=== PATIENT | female | born 1995 | race Two or more races ===

== ENCOUNTER 2024-03-02 08:53 | Day surgery (SDC) | payer OTHER ==
[2024-02-24 09:45] LABS: HEMATOCRIT 37.4 % (36.0-45.00); HEMOGLOBIN 12.9 g/dL (12.0-15.00); MEAN CELL VOLUME 87.6 fL (80.00-100.00); MEAN CORPUSCULAR HEMOGLOBIN 30.3 pg (27.00-32.0); MEAN CORPUSCULAR HGB CONC 34.6 g/dl (32.0-36.0); PLATELET COUNT 235 K/uL (150-450); RED BLOOD COUNT 4.27 M/uL (4.00-6.00); RED CELL DISTRIBUTION WIDTH 13.4 % (11.5-14.5)
[2024-02-24 10:12] LABS: PARTIAL THROMBOPLASTIN TIME 27.6 SECONDS (22.0-34.0); PROTHROMBIN TIME 10.9 SECONDS (9.0-11.5)
[2024-02-24 10:30] LABS: ALBUMIN 3.8 gm/dL (3.4-5.0); BILIRUBIN TOTAL 0.4 mg/dL (0.3-1.2); CALCIUM 8.9 mg/dL (8.5-10.1); CREATININE SERUM 0.72 mg/dL (0.55-1.02); GFR 95.11; GLOBULINA 3.3 G/DL (2.4-3.5); POTASSIUM 4.16 mEq/L (3.5-5.1); TOTAL PROTEIN 7.1 gm/dL (6.4-8.2)
[2024-03-02] MEDS ORDERED: POVIDONE-IODINE 118 ML BOTT TOP SCH (15:00)
== END 2024-03-02 21:05 | disposition home or self-care (01) ==
LOC: CIR.AMB 08:53
PROVIDERS: ATTEND Specialist
DX: N84.0 Polyp of corpus uteri (principal); Z88.1 Allergy status to other antibiotic agents

== ENCOUNTER 2024-05-04 14:49 | Emergency (ER) | payer OTHER ==
[~2024-05-04] VITALS: Ht 165.1 cm; Wt 75.3 kg
[2024-05-04 17:13] LABS: HEMATOCRIT 38.9 % (36.0-45.00); HEMOGLOBIN 13.2 g/dL (12.0-15.00); MEAN CELL VOLUME 88.5 fL (80.00-100.00); PLATELET COUNT 265 K/uL (150-450); RED CELL DISTRIBUTION WIDTH 12.8 % (11.5-14.5)
[2024-05-04] MEDS ORDERED: MEPERIDINE HCL/PF 25 MG/ML VIAL IV ONE (17:45)
[2024-05-04 17:50] LABS: PH,URINE 7.5 (5.0-8.0); URINE APPEARANCE Clear; URINE BILIRRUBIN Negative (NEGATIVE); URINE BLOOD Large; URINE COLOR Orange; URINE GLUCOSE Negative (NEGATIVE); URINE KETONE Negative (NEGATIVE); URINE LEUKOCYTE Large; URINE NITRATE Negative; URINE PROTEIN 30 (NEGATIVE)
[2024-05-04 17:54] LABS: URINE BACTERIA 812.6 uL (0.0-1933); URINE EPITHELIAL CELLS 40.6 uL (0.0-38.8); URINE WBC 193.4 uL (0.0-23.2)
[2024-05-04 18:35] LABS: URINE YEAST FEW /hpf
[2024-05-04] MEDS ORDERED: PEPCID AC20 MG PO (19:31)
[2024-05-04] MEDS ORDERED: BACTRIM DS TAB1 EACH PO (19:31)
[2024-05-04] MEDS ORDERED: KETO10TA2 PO (19:31)
== END 2024-05-04 19:37 | disposition home or self-care (01) ==
LOC: ER 14:51
PROVIDERS: General Practice
DX: O20.8 Other hemorrhage in early pregnancy (principal); Z3A.01 Less than 8 weeks gestation of pregnancy; R10.2 Pelvic and perineal pain; N93.9 Abnormal uterine and vaginal bleeding, unspecified; Z88.1 Allergy status to other antibiotic agents

== ENCOUNTER 2025-02-19 16:47 | Emergency (ER) | payer OTHER ==
[~2025-02-19] VITALS: Ht 165.1 cm; Wt 77.6 kg
[~2025-02-19 16:47] MED LIST: BACTRIM DS TAB1 EACH PO; KETO10TA2 PO; PEPCID AC20 MG PO
[2025-02-19] MEDS ORDERED: ONDANSETRON HCL 2 MG/ML VIAL IV ONE (19:00)
[2025-02-19] MEDS ORDERED: FAMOtidine 10 MG/ML (4ML VIAL) IV ONE (19:00)
[2025-02-19] MEDS ORDERED: ONDANSETRON HCL 2 MG/ML VIAL ONE (19:50)
[2025-02-19] MEDS ORDERED: FAMOTIDINE/PF 20 MG/2 ML VIAL ONE (19:50)
[2025-02-19 20:26] LABS: BASO % 0.1 % (0.1-1.2); EOS # 0.07 (0.04-0.54); EOS % 0.5 % (0.7-7.0); LYMPH # 1.58 (1.18-3.74); LYMPH % 10.2 % (19.3-53.1); MEAN PLATELET VOLUME 10.70 fl (9.4-12.4); MONO # 0.94 (0.24-0.82); MONO % 6.1 % (4.7-12.5); NEUT # 12.72 (1.56-6.13); NEUT % 82.5 % (34.0-71.1); RED CELL DISTRIBUTION WIDTH 13.7 % (11.6-14.4)
[2025-02-19 20:52] LABS: INR 1.0
[2025-02-19 20:57] LABS: ALT/SGPT 22.0 U/L (12-78); AST/SGOT 8.0 U/L (15-37); BILIRUBIN TOTAL 0.45 mg/dL (0.3-1.2); BUN CREA RATIO 4.0 (7.0-25.0); CREATININE SERUM 0.68 mg/dL (0.55-1.02); GFR 100.92; GLOBULINA 4.4 G/DL (2.4-3.5); GLUCOSE FASTING 134.0 mg/dL (65-100); OSMOLALITY SERUM 270.0 MOSM/KG (275-295)
[2025-02-19 21:13] LABS: URINE APPEARANCE Clear; URINE BILIRRUBIN Negative (NEGATIVE); URINE BLOOD Negative; URINE COLOR Yellow; URINE GLUCOSE Negative (NEGATIVE); URINE KETONE Negative (NEGATIVE); URINE LEUKOCYTE Moderate; URINE NITRATE Negative; URINE PROTEIN Negative (NEGATIVE); URINE UROBILINOGEN 0.2 E.U./dl
[2025-02-19 21:18] LABS: URINE BACTERIA 1069.0 uL (0.0-1933); URINE EPITHELIAL CELLS 23.8 uL (0.0-38.8); URINE WBC 131.2 uL (0.0-23.2)
[2025-02-19 21:25] LABS: URINE CAST 0.29 uL (0.0-1.40); URINE RBC 0.4 uL (0.0-20.8)
[2025-02-19] MEDS ORDERED: CETIRIZINE HCL 5MG/5ML BLIST.PACK PO ONE (22:34)
[2025-02-19] MEDS ORDERED: ZYRTEC10 MG PO (22:41)
[2025-02-19] MEDS ORDERED: MACROBID 100 M100 MG PO (22:41)
[2025-02-19] MEDS ORDERED: ZOFRAN8 MG PO (22:41)
[2025-02-19] MEDS ORDERED: CETIRIZINE HCL 5 MG/5 ML ML PO ONE (22:45)
== END 2025-02-19 22:57 | disposition home or self-care (01) ==
LOC: ER 16:47
PROVIDERS: General Practice
DX: R10.2 Pelvic and perineal pain (principal); R19.7 Diarrhea, unspecified; R11.2 Nausea with vomiting, unspecified; Z88.1 Allergy status to other antibiotic agents; J45.909 Unspecified asthma, uncomplicated; Z85.3 Personal history of malignant neoplasm of breast; A49.3 Mycoplasma infection, unspecified site